=== PATIENT | male | born 1960 | race Caucasian/White ===

== ENCOUNTER → 2021-09-06 | Outpatient (CLI) | payer OTHER ==
[2021-09-06 11:53] LABS: ARTERIAL BLD GAS O2 SATURATION 96.2 % (92-100); ARTERIAL BLD GAS TCO2 CT 24.7; ARTERIAL BLOOD GAS BASE EXCESS 0.3 (-2-2); ARTERIAL BLOOD GAS HCO3 23.6 meq/L (22-26); ARTERIAL BLOOD GAS PCO2 34.7 mmHg (35-45); ARTERIAL BLOOD GAS PO2 82.4 mmHg (80-100); ARTERIAL BLOOD GAS pH 7.45 (7.35-7.45)
== END ==
LOC: COL.PUL 11:34
PROVIDERS: Internal Medicine Pulmonary Disease
DX: I34.0 Nonrheumatic mitral (valve) insufficiency (principal)

== ENCOUNTER → 2022-04-09 | Outpatient (CLI) | payer OTHER | LOC: COL.VAS 12:04 | DX: I07.1 Rheumatic tricuspid insufficiency (principal); I27.20 Pulmonary hypertension, unspecified ==

== ENCOUNTER 2023-08-05 08:41 | Day surgery (SDC) | payer MEDICARE ==
[~2023-08-05] VITALS: Ht 182.9 cm; Wt 165.3 kg
[2023-08-05] MEDS ORDERED: CRESTOR40 MG PO (10:04)
[2023-08-05] MEDS ORDERED: NORVASC 5MG5 MG/TAB PO (10:05)
[2023-08-05] MEDS ORDERED: PHRENILIN 325 M1 TAB (10:06)
[2023-08-05] MEDS ORDERED: AMOXICILLIN875 MG PO (10:06)
[2023-08-05] MEDS ORDERED: FLEXERIL 1010 MG/TAB PO (10:07)
[2023-08-05] MEDS ORDERED: PREVACID 30MG30 M1 PO (10:08)
[2023-08-05] MEDS ORDERED: VOLTAREN 75 DR75 MG PO (10:08)
[2023-08-05] MEDS ORDERED: PRINIVIL20 MG PO (10:08)
[2023-08-05] MEDS ORDERED: TOPROL XL100 MG (10:09)
[2023-08-05] MEDS ORDERED: GLUCOPHAGE XR500 M1 PO (10:09)
[2023-08-05] MEDS ORDERED: PRINZIDE 25 MG-1 TAB PO (10:09)
[2023-08-05] MEDS ORDERED: PROVIGIL200 MG PO (10:10)
[2023-08-05] MEDS ORDERED: MOUNJARO7.5 MG/0.5 SQ (10:10)
[2023-08-05] MEDS ORDERED: MYRBETR50MG PO (10:11)
[2023-08-05] MEDS ORDERED: NOVOLOG FLEX100 U/ML (10:11)
[2023-08-05] MEDS ORDERED: VESICARE 5MG5 MG PO (10:12)
[2023-08-05] MEDS ORDERED: FLOMAX 0.40.4 MG/CAP PO (10:12)
[2023-08-05] MEDS ORDERED: TRESIBA FL200 UNIT/1 (10:13)
[2023-08-05] MEDS ORDERED: EFFEXOR-XR150 MG PO (10:14)
[2023-08-05] MEDS ORDERED: MULTI VITAMINS1 TAB PO (10:15)
[2023-08-05] MEDS ORDERED: OMEGA-3 1000 MG1 CAP PO (10:15)
[2023-08-05] MEDS ORDERED: ASPIRIN E.C. 8181 MG PO (10:15)
[2023-08-05] MEDS ORDERED: PROBIOTIC BLEN1 EACH PO (10:16)
[2023-08-05 11:20] VITALS: BP 95/62; PULSE 95; TEMP 97.5
[2023-08-05 11:30] VITALS: BP 94/66; PULSE 94
[2023-08-05 11:45] VITALS: BP 105/64; PULSE 85
[2023-08-05 12:00] VITALS: BP 110/79; PULSE 85
--- NOTE | 2023-08-05 12:20 | NUR ---
1120- PATIENT RETURNS TO [facility] [place] VIA CART. PT AWAKE AND ALERT. RESPIRATIONS UNLABORED. AMBULATED TO RECLINER CHAIR WITH 2:1 SBA. PT DENIES NAUSEA OR ABDOMINAL PAIN. HOOKED UP TO MONITOR AND VS OBTAINED. CALL LIGHT AT SIDE. 1125- DR. KIRBY IN ROOM SPEAKING WITH PATIENT. 1128- PATIENT TOLERATING CRANBERRY JUICE AND MUFFIN WITHOUT NAUSEA. 1133- D/C INSTRUCTIONS REVIEWED WITH PATIENT. PT VERBALIZED UNDERSTANDING AND A COPY OF INSTRUCTIONS PROVIDED IN D/C FOLDER. 1214- PATIENT DRESSES SELF. 1220- PER PT REQUEST HE WAS TAKEN VIA W/C TO [facility] TO MEET HIS BROTHER FOR LUNCH. hE WAS LEFT WITH HIS BROTHER IN STABLE CONDITION.
[2023-08-05 14:21] VITALS: BP 103/75; PULSE 97; TEMP 97.3
--- NOTE | 2023-08-05 14:24 | NUR ---
0952 PT AMBULATORY TO BAY 5 WITH A STEADY GAIT, BREATHING EVEN AND UNLABORED. PT IS ALERT AND ORIENTED. CONSENTS REVIEWED AND SIGNED BY PT. IV ESTABLISHED. NS INFUSING VIA GRAVITY. CALL LIGHT IN REACH. BLANKET PROVIDED.
== END 2023-08-05 12:20 | disposition home or self-care (01) ==
LOC: SDCO 08:41
DX: Z12.11 Encounter for screening for malignant neoplasm of colon (principal); D12.8 Benign neoplasm of rectum; K64.0 First degree hemorrhoids; K64.4 Residual hemorrhoidal skin tags; K63.5 Polyp of colon; G47.33 Obstructive sleep apnea (adult) (pediatric); K21.9 Gastro-esophageal reflux disease without esophagitis; E66.01 Morbid (severe) obesity due to excess calories; Z68.39 Body mass index [BMI] 39.0-39.9, adult; Z99.81 Dependence on supplemental oxygen; Z79.899 Other long term (current) drug therapy
CPT/HCPCS: J2704; J7030